=== PATIENT | female | born 1960 | race Caucasian/White ===

== ENCOUNTER 2018-11-25 22:30 | Emergency (ER) | payer OTHER ==
[2018-11-25] MEDS ORDERED: SODIUM CHLORIDE 0.9% 2,000 ML IV STA (23:02)
[2018-11-25] MEDS ORDERED: ONDANSETRON 4 MG/2 ML VIAL IVP STA (23:02)
--- NOTE | 2018-11-25 23:27 | ED ---
Nausea/Vomiting/Diarrhea HPI - General Source: patient, RN notes reviewed Mode of arrival: wheelchair Limitations: no limitations <Gregorio Acosta - Last Filed: 11/26/18 00:50> <Mariana Rich - Last Filed: 11/29/18 23:57> - General Chief complaint: Nausea/Vomiting/Diarrhea Stated complaint: N/D Time Seen by Provider: 11/25/18 23:01 - History of Present Illness Initial comments: 58-year-old female presented emergency department with chief complaint of nausea vomiting diarrhea. Patient states symptoms started this afternoon abruptly. She states she felt fine prior to this. She states she didn't encounter a kid 3 days ago that had some her symptoms. Patient states she has diffuse abdominal discomfort states it just feels upset. She states she's had severe watery diarrhea with multiple episodes of emesis that is not obtained blood or coffee-ground emesis. Patient's had no reported fever. (Gregorio Acosta) - Related Data Previous Rx's Medication Instructions Recorded Ondansetron Odt [Zofran Odt] 4 mg PO Q8HR PRN #10 tab 11/26/18 Allergies Allergy/AdvReac Type Severity Reaction Status Date / Time No Known Allergies Allergy Verified 11/25/18 22:46 Review of Systems ROS Other: All systems not noted in ROS Statement are negative. <Gregorio Acosta - Last Filed: 11/26/18 00:50> ROS Other: All systems not noted in ROS Statement are negative. <Mariana Rich - Last Filed: 11/29/18 23:57> ROS Statement: Those systems with pertinent positive or pertinent negative responses have been documented in the HPI. Past Medical History Past Medical History: Hypertension, Thyroid Disorder History of Any Multi-Drug Resistant Organisms: None Reported Past Surgical History: Cholecystectomy, Tonsillectomy Past Psychological History: Depression Smoking Status: Never smoker Past Alcohol Use History: None Reported Past Drug Use History: None Reported <Gregorio Acosta - Last Filed: 11/26/18 00:50> General Exam Limitations: no limitations General appearance: alert, in no apparent distress Head exam: Present: atraumatic, normocephalic, normal inspection ENT exam: Present: normal oropharynx, mucous membranes moist Neck exam: Present: normal inspection, full ROM. Absent: tenderness, meningismus, lymphadenopathy Respiratory exam: Present: normal lung sounds bilaterally. Absent: respiratory distress, wheezes, rales, rhonchi, stridor Cardiovascular Exam: Present: regular rate, normal rhythm, normal heart sounds. Absent: systolic murmur, diastolic murmur, rubs, gallop, clicks GI/Abdominal exam: Present: soft, tenderness (Mild diffuse), normal bowel sounds. Absent: distended, guarding, rebound, rigid Back exam: Absent: CVA tenderness (R), CVA tenderness (L) Skin exam: Present: warm, dry, intact, normal color. Absent: rash <Gregorio Acosta - Last Filed: 11/26/18 00:50> Vital Signs 11/25/18 11/25/18 11/26/18 22:42 23:29 01:42 Temperature 98.1 F 99.3 F Pulse Rate 71 63 58 L Respiratory 17 18 18 Rate Blood Pressure 147/82 133/56 137/62 O2 Sat by Pulse 95 96 97 Oximetry Medical Decision Making - Lab Data Result diagrams: 11/25/18 23:19 11/25/18 23:19 <Gregorio Acosta - Last Filed: 11/26/18 00:50> - Lab Data Result diagrams: 11/25/18 23:19 11/25/18 23:19 <Mariana Rich - Last Filed: 11/29/18 23:57> - Medical Decision Making 58-year-old female presents emergency department for nausea vomiting diarrhea. Patient symptoms started this afternoon. Patient lab work, urinalysis. Patient has no acute abnormality's. Patient has gastroenteritis. She is improvement IV fluids and antiemetics. Patient is able tolerate oral intake. Patient will be discharged with Zofran return parameters were discussed. (Gregorio Acosta) - Lab Data Lab Results 11/25/18 11/25/18 11/26/18 Range/Units 23:19 23:19 00:18 WBC 8.8 (3.8-10.6) k/uL RBC 4.89 (3.80-5.40) m/uL Hgb 13.9 (11.4-16.0) gm/dL Hct 42.9 (34.0-46.0) % MCV 87.7 (80.0-100.0) fL MCH 28.3 (25.0-35.0) pg MCHC 32.3 (31.0-37.0) g/dL RDW 15.9 H (11.5-15.5) % Plt Count 227 (150-450) k/uL Neutrophils % 89 % Lymphocytes % 6 % Monocytes % 3 % Eosinophils % 1 % Basophils % 0 % Neutrophils # 7.8 H (1.3-7.7) k/uL Lymphocytes # 0.6 L (1.0-4.8) k/uL Monocytes # 0.3 (0-1.0) k/uL Eosinophils # 0.1 (0-0.7) k/uL Basophils # 0.0 (0-0.2) k/uL Sodium 141 (137-145) mmol/L Potassium 4.2 (3.5-5.1) mmol/L Chloride 108 H (98-107) mmol/L Carbon Dioxide 25 (22-30) mmol/L Anion Gap 8 mmol/L BUN 22 H (7-17) mg/dL Creatinine 0.56 (0.52-1.04) mg/dL Est GFR (CKD-EPI)AfAm >90 (>60 ml/min/1.73 sqM) Est GFR (CKD-EPI)NonAf >90 (>60 ml/min/1.73 sqM) Glucose 166 H (74-99) mg/dL Calcium 9.2 (8.4-10.2) mg/dL Total Bilirubin 0.7 (0.2-1.3) mg/dL AST 26 (14-36) U/L ALT 29 (9-52) U/L Alkaline Phosphatase 98 (38-126) U/L Total Protein 7.6 (6.3-8.2) g/dL Albumin 3.9 (3.5-5.0) g/dL Amylase 41 (30-110) U/L Lipase 132 (23-300) U/L Urine Color Yellow Urine Appearance Clear (Clear) Urine pH 6.5 (5.0-8.0) Ur Specific [place] 1.020 (1.001-1.035) Urine Protein Trace H (Negative) Urine Glucose (UA) Negative (Negative) Urine Ketones Negative (Negative) Urine Blood Trace H (Negative) Urine Nitrite Negative (Negative) Urine Bilirubin Negative (Negative) Urine Urobilinogen <2.0 (<2.0) mg/dL Ur Leukocyte Esterase Small H (Negative) Urine RBC 5 (0-5) /hpf Urine WBC 9 H (0-5) /hpf Ur Squamous Epith Cells 4 (0-4) /hpf Urine Bacteria Rare H (None) /hpf Urine Mucus Few H (None) /hpf Disposition Is patient prescribed a controlled substance at d/c from ED?: No Time of Disposition: 00:51 <Gregorio Acosta M - Last Filed: 11/26/18 00:50> <Mariana Rich P - Last Filed: 11/29/18 23:57> Clinical Impression: Gastroenteritis Disposition: HOME SELF-CARE Condition: Stable Instructions: Gastroenteritis (ED) Additional Instructions: Please return to the Emergency Department if symptoms worsen or any other concerns. Prescriptions: Ondansetron Odt [Zofran Odt] 4 mg PO Q8HR PRN #10 tab PRN Reason: Nausea Referrals: Nonstaff,Physician [Primary Care Provider] - 1-2 days
[2018-11-25 23:31] VITALS: RESP 18
[2018-11-25 23:38] LABS: Basophils % (A) 0 %; Eosinophils # (A) 0.1 k/uL (0-0.7); Eosinophils % (A) 1 %; HCT 42.9 % (34.0-46.0); HGB 13.9 gm/dL (11.4-16.0); Lymphocytes # (A) 0.6 k/uL (1.0-4.8); Lymphocytes % (A) 6 %; MCH 28.3 pg (25.0-35.0); MCHC 32.3 g/dL (31.0-37.0); MCV 87.7 fL (80.0-100.0); Mean Platelet Volume 6.9; Monocytes # (A) 0.3 k/uL (0-1.0); Monocytes % (A) 3 %; Neutrophils # (A) 7.8 k/uL (1.3-7.7); Neutrophils % (A) 89 %; Platelet Count 227 k/uL (150-450); RBC 4.89 m/uL (3.80-5.40); RDW 15.9 % (11.5-15.5); WBC 8.8 k/uL (3.8-10.6)
[2018-11-25 23:54] LABS: ALT 29 U/L (9-52); AST 26 U/L (14-36); Albumin 3.9 g/dL (3.5-5.0); Alkaline Phosphatase 98 U/L (38-126); Amylase 41 U/L (30-110); Anion Gap 8 mmol/L; Blood Urea Nitrogen 22 mg/dL (7-17); Calcium 9.2 mg/dL (8.4-10.2); Carbon Dioxide 25 mmol/L (22-30); Chloride 108 mmol/L (98-107); Glucose 166 mg/dL (74-99); Lipase 132 U/L (23-300); Potassium 4.2 mmol/L (3.5-5.1); Sodium 141 mmol/L (137-145); Total Bilirubin 0.7 mg/dL (0.2-1.3); Total Protein 7.6 g/dL (6.3-8.2)
[2018-11-26] MEDS ORDERED: FAMOTIDINE 20 MG/2 ML VIAL IV STA (00:29)
[2018-11-26] MEDS ORDERED: ONDANSETRON 4 MG/2 ML VIAL IVP STA (00:29)
[2018-11-26 00:42] LABS: Appearance,Urine Clear (Clear); Bacteria,Urine Rare /hpf; Bilirubin,Urine Negative (Negative); Blood,Urine Trace (Negative); Color,Urine Yellow; Glucose,Urine (UA) Negative (Negative); Ketones,Urine Negative (Negative); Leukocyte Esterase,Urine Small (Negative); Mucus,Urine Few /hpf; Nitrite,Urine Negative (Negative); PH, Urine 6.5 (5.0-8.0); Protein,Urine Trace (Negative); RBC,Urine 5 /hpf (0-5); Squamous Epithelial Cell,Urine 4 /hpf (0-4); Urobilinogen,Urine <2.0 mg/dL (<2.0); WBC,Urine 9 /hpf (0-5)
[2018-11-26] MEDS ORDERED: ONDANSETRON 4 MG ODT STARTER PACK 2 TAB BTL PO STA (00:49)
[2018-11-26 01:44] VITALS: BP 137/62; PULSE 58; TEMP 99.3
== END 2018-11-26 01:42 | disposition home or self-care (01) ==
LOC: EC 22:30
DX: K52.9 Noninfective gastroenteritis and colitis, unspecified (principal); Z90.49 Acquired absence of other specified parts of digestive tract
CPT/HCPCS: 36415; 80053; 82150; 83690; 85025; 81001; 87086; 99284; 96374; 96375; 96376; 96361 ×2; J2405 ×2; S0119